=== PATIENT | male | born 1995 | race Hispanic/Latino ===

== ENCOUNTER 2017-01-10 09:31 | Outpatient (CLI) | payer OTHER ==
--- NOTE | 2017-01-10 10:10 | RAD ---
THORACIC SPINE THREE VIEWS: Indication: S22.8A, back pain. History of back injury. Comparison: 12-12-16 FINDINGS: Previously documented T12 compression deformity is not well visualized on the lateral view due to ov erlying abdominal structures. Bifrontal projection T12 vertebra is grossly stable. There is a slight convexity curvature of the mid thoracic spine. Exam is otherwise stable. IMPRESSION: Suboptimal visualization of the T12 compression due to overlying abdominal structures on the lateral view. POS: [facility]
--- NOTE | 2017-01-10 11:08 | RAD ---
LUMBAR SPINE 4 VIEWS: HISTORY: Low back pain. FINDINGS: There are 5 lumbar-type vertebrae. Pedicles are intact. Compression fractures of T12 and L2 are st able compared to previous study from 12/12/16. No abnormal translational motion is evident upon flexi on or extension. IMPRESSION: Stable radiographic appearance of the lower thoracic and lumbar vertebral compression injuries. POS: [facility]
== END 2017-01-10 09:32 | disposition home or self-care (01) ==
LOC: TBSIIMAG 09:31
PROVIDERS: ATTEND Neurological Surgery
DX: S22.008A Other fracture of unspecified thoracic vertebra, initial encounter for closed fracture (principal)
CPT/HCPCS: 72070; 72120